=== PATIENT | female | born 1995 | race Caucasian/White ===

== ENCOUNTER 2017-05-03 07:50 | Inpatient (IN) | payer OTHER, MEDICAID ==
[2017-05-03] VITALS (11 sets, daily range): BP systolic 97–128; BP diastolic 57–75; PULSE 91–108; RESP 16–20; TEMP 97.7–99.5; O2SAT 97–100
[~2017-05-03] VITALS: Ht 162.6 cm; Wt 67.7 kg
[2017-05-03] MEDS ORDERED: ceFAZolin 2 GM PREMIX 50 ML IV ONE (08:00)
[2017-05-03] MEDS ORDERED: DIPHTH/TETANUS/ACEL PERTUSSIS (BOOSTER) 0.5 ML VIAL/PFS IM ONE (08:00)
[2017-05-03 08:21] LABS: AUTOMATED NEUTROPHIL # 24.9 TH/MM3 (1.8-7.7); BASOPHIL % 0.1 % (0.0-2.0); EOSINOPHIL # 0.1 TH/MM3 (0-0.4); EOSINOPHIL % 0.4 % (0.0-4.0); HEMATOCRIT 44.2 % (35.0-46.0); HEMO FLAGS DIFF FINAL; LYMPH % 6.3 % (9.0-44.0); LYMPHOCYTE # 1.8 TH/MM3 (1.0-4.8); MEAN CELL VOLUME 89.2 FL (80.0-100.0); MEAN CORPUSCULAR HEMOGLOBIN 29.1 PG (27.0-34.0); MEAN CORPUSCULAR HGB CONC 32.7 % (32.0-36.0); MONO % 6.1 % (0.0-8.0); NEUT % 87.1 % (16.0-70.0); PLATELET COUNT 339 TH/MM3 (150-450); RED BLOOD COUNT 4.96 MIL/MM3 (4.00-5.30); RED CELL DISTRIBUTION WIDTH 12.9 % (11.6-17.2); WHITE BLOOD COUNT 28.6 TH/MM3 (4.0-11.0)
[2017-05-03 08:23] LABS: I-STAT POTASSIUM 3.9 MMOL/L (3.5-4.9)
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
[2017-05-03] MEDS ORDERED: IOHEXOL 350 MG/ML 10 ML VIAL (for RAD DIAG) IVCONTRAST ONE (08:28)
[2017-05-03 08:33] LABS: PROTHROMBIN TIME - PATIENT 11.3 SEC (9.8-11.6)
[2017-05-03 08:35] LABS: APTT (PATIENT) 25.1 SEC (24.3-30.1)
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
[2017-05-03] MEDS ORDERED: LEVE500 PO (08:50)
[2017-05-03] MEDS ORDERED: KEPP750T PO (08:50)
[2017-05-03] MEDS ORDERED: MORPHINE SULFATE 4 MG/ML INJ IV PUSH ONE ×2 (09:00→11:15)
[2017-05-03] MEDS ORDERED: METOCLOPRAMIDE HCL 10 MG/2 ML VIAL IV PUSH ONE (09:00)
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
[2017-05-03] MEDS ORDERED: LIDOCAINE 2%/EPINEPHrine 1:100,000 20ML MDV NERV BLOCK ONE (09:30)
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
[2017-05-03] MEDS: LACTATED RINGER'S 1000 ML INJ 1,000 ML IV SCH ×2 (11:37→21:37)
[2017-05-03] MEDS ORDERED: MORPHINE SULFATE 4 MG/ML INJ IV PUSH PRN (11:45)
[2017-05-03] MEDS ORDERED: MISCELLANEOUS NURSING INFORMATION XX SCH (11:45)
[2017-05-03] MEDS ORDERED: CHLORHEXIDINE GLUCONATE 2 % 1 PACK (2 CLOTHS) TOP PRN (11:45)
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
[2017-05-03] MEDS ORDERED: METHOCARBAMOL 500 MG TAB PO ONE (13:15)
[2017-05-03] MEDS: KETOROLAC TROMETHAMINE 30 MG/ML (IVP) VIAL IVP SCH ×2 (13:41→20:19)
[2017-05-03] MEDS: ENOXAPARIN SODIUM 30 MG/0.3 ML SYRINGE SQ SCH (13:42)
[2017-05-03] MEDS: HYDROmorphone HCL PF 1 MG/ML VIAL IVP PRN ×2 (13:42→20:20)
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
[2017-05-03] MEDS ORDERED: AMPICILLIN-SULBACTAM INJ 1,500 MG VIAL IM SCH (14:00)
[2017-05-03] MEDS: levETIRAcetam 500 MG TAB PO SCH (15:15)
[2017-05-03] MEDS: AMPICILLIN/SULBAC 1500 MG/NS 100 ML IV SCH ×4 (18:24→23:59)
[2017-05-03] MEDS: DOCUSATE SODIUM 100 MG CAP PO SCH (20:18)
[2017-05-03] MEDS: levETIRAcetam 250 MG TAB PO SCH (20:18)
[2017-05-03] MEDS: BACITRACIN TOP OINT 15 GM TUBE TOPICAL SCH (20:24)
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
[2017-05-03] MEDS ORDERED: levETIRAcetam 500 MG TAB PO SCH (21:00)
[2017-05-04] VITALS (7 sets, daily range): BP systolic 101–113; BP diastolic 58–78; PULSE 81–106; RESP 18–19; TEMP 96–97.9; O2SAT 95–100
[2017-05-04] MEDS: HYDROmorphone HCL PF 1 MG/ML VIAL IVP PRN ×3 (00:08→14:00)
[2017-05-04] MEDS: SODIUM CHLORIDE 0.9% FLUSH 10 ML FLUSH IVF PRN (00:10)
[2017-05-04] MEDS: ENOXAPARIN SODIUM 30 MG/0.3 ML SYRINGE SQ SCH ×3 (01:00→23:58)
[2017-05-04] MEDS: KETOROLAC TROMETHAMINE 30 MG/ML (IVP) VIAL IVP SCH ×4 (02:14→21:22)
[2017-05-04] MEDS ORDERED: CHLORHEXIDINE GLUCONATE 2 % 1 PACK (2 CLOTHS) TOP SCH (04:00)
[2017-05-04] MEDS: AMPICILLIN/SULBAC 1500 MG/NS 100 ML IV SCH ×8 (06:19→23:58)
[2017-05-04 06:29] LABS: AUTOMATED NEUTROPHIL # 6.2 TH/MM3 (1.8-7.7); BASOPHIL % 0.3 % (0.0-2.0); EOSINOPHIL # 0.3 TH/MM3 (0-0.4); EOSINOPHIL % 3.8 % (0.0-4.0); HEMATOCRIT 35.9 % (35.0-46.0); HEMO FLAGS DIFF FINAL; LYMPH % 17.7 % (9.0-44.0); LYMPHOCYTE # 1.6 TH/MM3 (1.0-4.8); MEAN CELL VOLUME 89.3 FL (80.0-100.0); MEAN CORPUSCULAR HEMOGLOBIN 29.8 PG (27.0-34.0); MEAN CORPUSCULAR HGB CONC 33.4 % (32.0-36.0); MONO % 8.8 % (0.0-8.0); NEUT % 69.4 % (16.0-70.0); PLATELET COUNT 211 TH/MM3 (150-450); RED BLOOD COUNT 4.03 MIL/MM3 (4.00-5.30); RED CELL DISTRIBUTION WIDTH 12.6 % (11.6-17.2)
[2017-05-04 06:46] LABS: BICARBONATE 24.9 MEQ/L (21.0-32.0); POTASSIUM 3.4 MEQ/L (3.5-5.1)
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
[2017-05-04] MEDS: LACTATED RINGER'S 1000 ML INJ 1,000 ML IV SCH ×2 (07:37→17:37)
[2017-05-04] MEDS: BACITRACIN TOP OINT 15 GM TUBE TOPICAL SCH ×2 (09:00→23:59)
[2017-05-04] MEDS: levETIRAcetam 500 MG TAB PO SCH (09:46)
[2017-05-04] MEDS: FAMOTIDINE 20 MG TAB PO SCH ×2 (09:46→21:22)
[2017-05-04] MEDS: DOCUSATE SODIUM 100 MG CAP PO SCH ×2 (09:46→21:22)
[2017-05-04] MEDS: LACTULOSE SYRUP 20 GM/30 ML CUP PO SCH (09:55)
[2017-05-04] MEDS: ONDANSETRON HCL 4 MG/2 ML VIAL IV PUSH PRN (11:22)
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
--- NOTE | 2017-05-04 16:11 | HHI.PR ---
Subjective Remarks no new complaints re: right UE Objective Vital Signs Date Time Temp Pulse Resp B/P (MAP) Pulse Ox O2 Delivery O2 Flow Rate FiO2 05/04/17 15:22 96.0 89 19 112/67 (82) 98 05/04/17 11:44 97.9 103 19 109/64 (79) 96 05/04/17 07:50 97.2 89 19 113/78 (90) 100 05/04/17 04:04 97.0 89 18 101/70 (80) 96 05/03/17 23:00 97.7 91 18 117/67 (84) 98 05/03/17 20:50 18 05/03/17 19:19 98.4 95 18 115/65 (82) 97 I/O 05/03/17 05/03/17 05/03/17 05/04/17 05/04/17 05/04/17 07:00 15:00 23:00 07:00 15:00 23:00 Intake Total 50 ml 360 ml 1061 ml 350 ml Balance 50 ml 360 ml 1061 ml 350 ml Intake Oral 360 ml 0 ml 350 ml IV Total 50 ml 1061 ml # Voids 2 1 3 # Bowel Movements 0 0 Result Diagram: 05/04/17 0557 05/04/17 0557 Objective Remarks Examination right upper extremity reveals erythema and edema gone. She is moving all of her fingers and the nurse reinforces this fact Capillary refill less than 2 seconds all fingertips All musculotendinous units are intact All wounds on her right hand and wrist and forearm are clean, no drainage She is awake alert and oriented 3 She is pleasant She is comfortable in her bed with her boyfriend sitting in a chair next to her Assessment and Plan Problem List: (1) Cellulitis of right upper extremity ICD Codes: L03.113 - Cellulitis of right upper limb Plan: No evidence of any infection right upper extremity. I will sign off please recall as needed Maico Webb III, MD May 04, 2017 16:11
[2017-05-04] MEDS ORDERED: MAGNESIUM HYDROXIDE SUSP 30 ML CUP PO SCH (21:00)
[2017-05-04] MEDS: levETIRAcetam 250 MG TAB PO SCH (21:25)
[2017-05-05] VITALS (9 sets, daily range): BP systolic 101–140; BP diastolic 58–83; PULSE 83–95; RESP 16–24; TEMP 97.1–99.2; O2SAT 96–98
[2017-05-05] MEDS: KETOROLAC TROMETHAMINE 30 MG/ML (IVP) VIAL IVP SCH ×2 (02:17→08:59)
[2017-05-05] MEDS: LACTATED RINGER'S 1000 ML INJ 1,000 ML IV SCH ×3 (03:37→12:40)
[2017-05-05] MEDS: AMPICILLIN/SULBAC 1500 MG/NS 100 ML IV SCH ×4 (04:59→12:41)
[2017-05-05] MEDS ORDERED: MAGN400S PO (07:39)
[2017-05-05] MEDS ORDERED: DOCU1CAP39 PO (07:39)
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
[2017-05-05] MEDS: levETIRAcetam 500 MG TAB PO SCH (08:59)
[2017-05-05] MEDS: DOCUSATE SODIUM 100 MG CAP PO SCH (08:59)
[2017-05-05] MEDS: LACTULOSE SYRUP 20 GM/30 ML CUP PO SCH (08:59)
[2017-05-05] MEDS: FAMOTIDINE 20 MG TAB PO SCH (08:59)
[2017-05-05] MEDS: BACITRACIN TOP OINT 15 GM TUBE TOPICAL SCH (09:00)
[2017-05-05] MEDS: ONDANSETRON HCL 4 MG/2 ML VIAL IV PUSH PRN (10:35)
[2017-05-05] MEDS: SODIUM CHLORIDE 0.9% FLUSH 10 ML FLUSH IVF PRN ×2 (10:35→13:17)
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
--- NOTE | 2017-05-05 13:10 | RADRPT ---
EXAM DATE/TIME: 05/05/2017 12:34 [facility] COMPARISON: CT BRAIN W/O CONTRAST, May 03, 2017, 8:09. INDICATIONS : Altered mental status. RADIATION DOSE: 56.35 CTDIvol (mGy) MEDICAL HISTORY : Seizures. SURGICAL HISTORY : None. ENCOUNTER: Initial ACUITY: 1 day PAIN SCALE: 8/10 LOCATION: Cranial TECHNIQUE: Multiple contiguous axial images were obtained of the head. Using automated exposure control and adj ustment of the mA and/or kV according to patient size, radiation dose was kept as low as reasonably a chievable to obtain optimal diagnostic quality images. DICOM format image data is available electro nically for review and comparison. FINDINGS: There is focal edema within the left mid-parietal lobe which has developed since the previous examina tion and measures 3.6 x 1.6 cm in size. There is no midline shift. No acute extra-axial bleed is noted. The ventricles are normal bilaterally. There is a radiopaque foreign body within the left frontal scalp. Small fluid l evels are noted within the maxillary sinuses. CONCLUSION: 1. Interval development of an area of edema within the left parietal lobe measuring 3.6 x 1.6 cm. No definite underlying acute hemorrhage is noted. 2. No midline shift or acute extra-axial bleed. 3. Radiopaque foreign body within the left frontal scalp. 4. Small fluid levels within the maxillary sinuses bilaterally. Clayton Sharpe MD on May 05, 2017 at 13:00 Board Certified Radiologist. This report was verified electronically.
[2017-05-05] MEDS: ENOXAPARIN SODIUM 30 MG/0.3 ML SYRINGE SQ SCH (13:17)
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
[2017-05-05] MEDS ORDERED: GADODIAMIDE PF 287 MG/ML 20 ML VIAL (for RAD MRI) IVCONTRAST ONE (16:38)
[2017-05-05] MEDS: HYDROmorphone HCL PF 1 MG/ML VIAL IVP PRN (17:15)
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
[2017-05-05] MEDS ORDERED: IOHEXOL 350 MG/ML 10 ML VIAL (for RAD DIAG) IVCONTRAST ONE (17:45)
--- NOTE | 2017-05-05 17:55 | RADRPT ---
EXAM DATE/TIME: 05/05/2017 17:25 [facility] COMPARISON: MRI BRAIN W/O CONTRAST, May 05, 2017, 16:25. INDICATIONS : Altered mental status. CONTRAST: 14 cc Omniscan (gadodiamide) IV MEDICAL HISTORY : Seizures. SURGICAL HISTORY : None. ENCOUNTER: Initial ACUITY: 1 day PAIN SCORE: 0/10 LOCATION: cranial TECHNIQUE: Multiplanar, multisequence MRI of the brain was performed following the administration of paramagneti c contrast. FINDINGS: Postcontrast T1 axial and coronal images were performed and compared with noncontrast MRI one hour pr evious. There is symmetric voss-white matter differentiation in the left and right hemisphere. No abnormal a reas of contrast enhancement or blood-brain barrier breakdown seen in the supra-or infratentorial bra in. In particular, no abnormal enhancement seen in the area of the acute left high parietal infarcti on. CONCLUSION: No abnormal areas of enhancement seen. Adonay Tatum MD on May 05, 2017 at 17:49 Board Certified Radiologist. This report was verified electronically.
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
[2017-05-05] MEDS: levETIRAcetam 250 MG TAB PO SCH (20:10)
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
== END 2017-05-05 20:53 | disposition short-term general hospital (02) | DRG 964 ==
LOC: NEPE 07:50 → NEDA 10:12 → N06B 12:39 → N03A 05-05 17:56
PROVIDERS: ADMIT Surgery Trauma Surgery; ATTEND Surgery Trauma Surgery
PROC: 0HQ1XZZ Repair Face Skin, External Approach (ICD-10-PCS; principal; 2017-05-03)
DX: S32.10XA Unspecified fracture of sacrum, initial encounter for closed fracture (principal); S06.1X0A Traumatic cerebral edema without loss of consciousness, initial encounter; R47.01 Aphasia; S32.591A Other specified fracture of right pubis, initial encounter for closed fracture; S32.018A Other fracture of first lumbar vertebra, initial encounter for closed fracture; S32.028A Other fracture of second lumbar vertebra, initial encounter for closed fracture; S32.038A Other fracture of third lumbar vertebra, initial encounter for closed fracture; S32.048A Other fracture of fourth lumbar vertebra, initial encounter for closed fracture; L03.113 Cellulitis of right upper limb; S01.112A Laceration without foreign body of left eyelid and periocular area, initial encounter; S42.021A Displaced fracture of shaft of right clavicle, initial encounter for closed fracture; V43.62XA Car passenger injured in collision with other type car in traffic accident, initial encounter; Y92.414 Local residential or business street as the place of occurrence of the external cause; F43.25 Adjustment disorder with mixed disturbance of emotions and conduct; G40.909 Epilepsy, unspecified, not intractable, without status epilepticus; F41.9 Anxiety disorder, unspecified
CPT/HCPCS: 12013; 70450; 70486; 70496; 70498; 70551; 70552; 71010; 71260; 72125; 72128; 72131; 72170; 73020; 73060; 73090; 73100; 73120; 73551; 73560; 74177; 80048; 82435; 82565; 82947; 84132; 84295; 84520; 85025; 85610; 85730; 86850; 86900; 86901; 90471; 90715; 94150; 96365; 96375; 99291; A9579; G0390; J0295; J0690; J1170; J1650; J1885; J2270; J2405; J2765; J7120; L3908; Q9967

== ENCOUNTER 2017-05-10 20:54 | Inpatient (IN) | payer SELFPAY ==
[~2017-05-10 20:54] MED LIST: DOCU1CAP39 PO; KEPP750T PO; LEVE500 PO; MAGN400S PO
[2017-05-11 15:45] VITALS: BP 140/63; PULSE 83; RESP 17; TEMP 98.6; O2SAT 97
[2017-05-11] MEDS ORDERED: CHLORHEXIDINE GLUCONATE 2 % 1 PACK (2 CLOTHS) TOP PRN ×2 (16:15)
[2017-05-11] MEDS ORDERED: SENNOSIDES 8.6 MG TAB PO PRN ×2 (16:15)
[2017-05-11] MEDS ORDERED: oxyCODONE/ACETAMINOPHEN 5 MG/325 MG TAB PO PRN ×2 (16:15)
[2017-05-11] MEDS ORDERED: MAGNESIUM HYDROXIDE SUSP 30 ML CUP PO PRN ×2 (16:15)
[2017-05-11] MEDS ORDERED: LACTULOSE SYRUP 20 GM/30 ML CUP PO PRN ×2 (16:15)
[2017-05-11] MEDS ORDERED: MISCELLANEOUS NURSING INFORMATION XX SCH ×2 (16:15)
[2017-05-11] MEDS ORDERED: SODIUM CHLORIDE 0.9% FLUSH 10 ML FLUSH IV FLUSH PRN ×2 (16:15)
[2017-05-11] MEDS ORDERED: BISACODYL 10 MG SUPP RECTAL PRN ×2 (16:15)
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
[2017-05-11] MEDS: oxyCODONE/ACETAMINOPHEN 5 MG/325 MG TAB PO PRN ×2 (17:28)
[2017-05-11 18:00] VITALS: PULSE 89
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
[2017-05-11] MEDS ORDERED: ONDANSETRON HCL 4 MG/2 ML VIAL IV PUSH PRN ×2 (19:30)
[2017-05-11 20:00] VITALS: BP 103/65; PULSE 78; RESP 12; TEMP 97.8; O2SAT 98
[2017-05-11] MEDS: SODIUM CHLOR 0.9% 1000 ML INJ 1,000 ML IV SCH ×2 (20:04)
[2017-05-11] MEDS: levETIRAcetam 500 MG TAB PO SCH ×2 (20:41)
[2017-05-11] MEDS: DOCUSATE SODIUM 50 MG/SENNA 8.6 MG TAB PO SCH ×2 (20:41)
[2017-05-11] MEDS: ATORVASTATIN 10 MG TAB PO SCH ×2 (20:42)
[2017-05-11] MEDS: SODIUM CHLORIDE 0.9% FLUSH 10 ML FLUSH IV FLUSH SCH ×2 (21:00)
[2017-05-11 22:00] VITALS: PULSE 72
[2017-05-12] VITALS (7 sets, daily range): BP systolic 92–116; BP diastolic 55–67; PULSE 62–98; RESP 12–20; TEMP 97.8–98.4; O2SAT 96–98
[2017-05-12] MEDS: CHLORHEXIDINE GLUCONATE 2 % 1 PACK (2 CLOTHS) TOP SCH ×2 (04:00)
[2017-05-12 05:58] LABS: AUTOMATED NEUTROPHIL # 7.6 TH/MM3 (1.8-7.7); BASOPHIL # 0.1 TH/MM3 (0-0.2); BASOPHIL % 0.5 % (0.0-2.0); EOSINOPHIL # 0.6 TH/MM3 (0-0.4); EOSINOPHIL % 5.2 % (0.0-4.0); HEMOGLOBIN 12.3 GM/DL (11.6-15.3); LYMPH % 18.6 % (9.0-44.0); LYMPHOCYTE # 2.1 TH/MM3 (1.0-4.8); MEAN CORPUSCULAR HEMOGLOBIN 30.3 PG (27.0-34.0); MEAN CORPUSCULAR HGB CONC 34.1 % (32.0-36.0); MEAN PLATELET VOLUME 9.2 FL (7.0-11.0); MONO % 6.8 % (0.0-8.0); MONOCYTE # 0.7 TH/MM3 (0-0.9); NEUT % 68.9 % (16.0-70.0); PLATELET COUNT 274 TH/MM3 (150-450); RED BLOOD COUNT 4.05 MIL/MM3 (4.00-5.30); RED CELL DISTRIBUTION WIDTH 12.7 % (11.6-17.2)
[2017-05-12 06:08] LABS: INTERNATIONAL NORMALIZED RATIO 2.8 RATIO; PROTHROMBIN TIME - PATIENT 32.2 SEC (9.8-11.6)
[2017-05-12 06:17] LABS: BICARBONATE 25.7 MEQ/L (21.0-32.0); CALCIUM 9.1 MG/DL (8.5-10.1); CREATININE 0.62 MG/DL (0.50-1.00)
[2017-05-12] MEDS: oxyCODONE/ACETAMINOPHEN 5 MG/325 MG TAB PO PRN ×6 (07:41→17:42)
[2017-05-12] MEDS: DOCUSATE SODIUM 50 MG/SENNA 8.6 MG TAB PO SCH ×4 (09:00→21:24)
[2017-05-12] MEDS: SODIUM CHLORIDE 0.9% FLUSH 10 ML FLUSH IV FLUSH SCH ×4 (09:00→21:00)
[2017-05-12] MEDS: FOLIC ACID 1 MG TAB PO SCH ×2 (09:01)
[2017-05-12] MEDS: levETIRAcetam 500 MG TAB PO SCH ×4 (09:01→21:23)
--- NOTE | 2017-05-12 09:49 | PD.CONS ---
[facility] Service Neurosurgery Consult Requested By Dr Nickerson Reason for Consult Trauma alert Primary Care Physician Unknown History of Present Illness This is a 22 y.o female, transferred last weekend to [facility] with CVA s/p b/l ICA dissection .She has been anticoagulated initially on heparin then on coumadin-she has been discharged with OP follow up recommendation by subspecialties,and rehab. Review of Systems Constitutional: DENIES: Diaphoretic episodes, Fatigue, Fever, Weight gain, Weight loss, Chills, Dizziness, Change in appetite, Night Sweats Endocrine: DENIES: Abnorml menstrual pattern, Heat/cold intolerance, Polydipsia , Polyuria, Polyphagia Eyes: DENIES: Blurred vision, Diplopia, Eye inflammation, Eye pain, Vision loss , Photosensitivity, Double Vision Ears, nose, mouth, throat: DENIES: Tinnitus, Hearing loss, Vertigo, Nasal discharge, Oral lesions, Throat pain, Hoarseness, Ear Pain, Running Nose, Epistaxis, Sinus Pain, Toothache, Odynophagia Respiratory: DENIES: Apneas, Cough, Snoring, Wheezing, Hemoptysis, Sputum production, Shortness of breath Cardiovascular: DENIES: Chest pain, Palpitations, Syncope, Dyspnea on Exertion , PND, Lower Extremity Edema, Orthopnea, Claudication Gastrointestinal: DENIES: Abdominal pain, Black stools, Bloody stools, Constipation, Diarrhea, Nausea, Vomiting, Difficulty Swallowing, Anorexia Genitourinary: DENIES: Abnormal vaginal bleeding, Dysmenorrhea, Dyspareunia, Sexual dysfunction, Urinary frequency, Urinary incontinence, Urgency, Hematuria , Dysuria, Nocturia, Vaginal discharge Musculoskeletal: DENIES: Joint pain, Muscle aches, Stiffness, Joint Swelling, Back pain, Neck pain Integumentary: DENIES: Abnormal pigmentation, Pruritus, Rash, Nail changes, Breast masses, Breast skin changes, Nipple discharge Hematologic/lymphatic: DENIES: Bruising, Lymphadenopathy Immunologic/allergic: DENIES: Eczema, Urticaria Neurologic: DENIES: Abnormal gait, Headache, Localized weakness, Paresthesias, Seizures, Speech Problems, Tremor, Poor Balance Past Family Social History Allergies: Coded Allergies: No Known Allergies (Unverified , 05/03/17) Past Medical History Seizures Past Surgical History Active Ordered Medications Current Medications Sodium Chloride (NS Flush) 2 ml UNSCH PRN IV FLUSH FLUSH AFTER USING IV ACCESS ; Start 05/11/17 at 16:15 Sodium Chloride (NS Flush) 2 ml BID IV FLUSH Last administered on 05/12/17 09: 00; Start 05/11/17 at 21:00 Oxycodone/ Acetaminophen (Percocet 5-325 Mg) 1 tab Q4H PRN PO PAIN SCALE 1 TO 5; Start 05/11/17 at 16:15 Miscellaneous Information 1 [id number] XX Last administered on 05/11/17 16:15; Start 05/11/17 at 16:15 Chlorhexidine Gluconate (Chlorhexidine 2% Cloth) 3 pack Taper DAILY@04 TOP ; Start 05/12/17 at 04:00; Stop 05/08/18 at 03:59 Chlorhexidine Gluconate (Chlorhexidine 2% Cloth) 3 pack UNSCH PRN TOP HYGIENIC CARE; Start 05/11/17 at 16:15 Senna/Docusate Sodium (Zoë-Colace) 1 tab BID PO Last administered on 20:41; Start 05/11/17 at 21:00 Magnesium Hydroxide (Milk Of Magnesia Liq) 30 ml Q12H PRN PO Mild constipation ; Start 05/11/17 at 16:15 Sennosides (Senokot) 17.2 mg Q12H PRN PO Moderate constipation; Start 05/11/17 at 16:15 Bisacodyl (Dulcolax Supp) 10 mg DAILY PRN RECTAL SEVERE CONSITIPATION; Start 05/11/17 at 16:15 Lactulose (Lactulose Liq) 30 ml DAILY PRN PO SEVERE CONSITIPATION; Start at 16:15 Atorvastatin Calcium (Lipitor) 10 mg HS PO Last administered on 05/11/17 20:42 ; Start 05/11/17 at 21:00 Folic Acid (Folate) 1 mg DAILY PO Last administered on 05/12/17 09:01; Start 05/12/17 at 09:00 Levetriacetam (Keppra) 1,000 mg Q12HR PO Last administered on 05/12/17 09:01; Start 05/11/17 at 21:00 Oxycodone/ Acetaminophen (Percocet 5-325 Mg) 2 tab Q4H PRN PO PAIN SCALE 7 TO 10 Last administered on 05/12/17 07:41; Start 05/11/17 at 16:15 Ondansetron HCl (Zofran Inj) 4 mg Q6H PRN IV PUSH N/V Last administered on 05/11 19:56; Start 05/11/17 at 19:30 Sodium Chloride 1,000 ml @ 50 mls/hr Q20H IV Last administered on 05/11/17 20 :04; Start 05/11/17 at 20:00 Family History Her family history has been reviewed and is noncontributory to this admission Social History smoking + Denies illicit drug use Physical Exam Vital Signs Vital Signs Date Time Temp Pulse Resp B/P (MAP) Pulse Ox O2 Delivery O2 Flow Rate FiO2 05/12/17 06:00 66 05/12/17 04:00 98.4 64 12 116/66 (83) 98 05/12/17 04:00 64 05/12/17 02:00 68 05/12/17 00:00 98.0 62 18 99/67 (78) 98 05/12/17 00:00 62 05/11/17 22:00 72 05/11/17 20:00 78 05/11/17 20:00 97.8 78 12 103/65 (78) 98 05/11/17 19:00 98 Room Air 05/11/17 18:00 89 05/11/17 15:45 97 Room Air 05/11/17 15:45 98.6 83 17 140/63 (88) 97 05/11/17 15:45 83 Physical Exam The patient is alert, awake and oriented to time, place and person. Speech is fluent. Higher cognitive functions are normal. Cranial nerve examination demonstrates the pupils to be equal, round, and reactive to light. Extra-ocular movements are intact. Facial motor and sensory function are normal and symmetrical. Gross hearing is intact, bilaterally. The uvula is midline and elevates symmetrically with the soft palate. Sternocleidomastoid and trapezius muscles have normal and symmetrical strength. Other cranial nerves are intact. Neck is soft and supple. Cervical spine has a full range of motion in anterior flexion, extension, lateral bending, and rotation without pain. There is no tenderness to palpation to the spinous processes or paraspinal muscles. Muscle testing reveals normal bulk and tone overall without rigidity, spasticity , fasciculations, or atrophy. Muscle strength is 5/5 in all muscle groups of both upper extremities including deltoid, biceps, triceps, brachioradialis, wrist extension and wellness program manager. In the lower extremities, strength is 5/5 in both iliopsoas, quadriceps, hamstrings, plantar flexion, dorsiflexion, and extensor hallicus longus. Sensory examination is intact to light touch and sharp/dull discrimination in both the upper and lower extremities, symmetrically. Deep tendon reflexes are 2+ and symmetrical in the biceps, triceps, and brachioradialis, bilaterally, in the upper extremities. In the lower extremities , the patellar and Achilles are 2+, bilaterally. There is a bilateral plantar flexion response. Hoffmanns sign is negative. There is no clonus or other abnormal reflexes noted. Cerebellar examination is intact to [id number] test, rapid rhythmic alternating motion. There is no dysmetria, dysdiadochokinesia, truncal ataxia, or tremor. Laboratory Laboratory Tests Test 05/12/17 04:48 White Blood Count 11.0 Red Blood Count 4.05 Hemoglobin 12.3 Hematocrit 36.0 Mean Corpuscular Volume 89.0 Mean Corpuscular Hemoglobin 30.3 Mean Corpuscular Hemoglobin Concent 34.1 Red Cell Distribution Width 12.7 Platelet Count 274 Mean Platelet Volume 9.2 Neutrophils (%) (Auto) 68.9 Lymphocytes (%) (Auto) 18.6 Monocytes (%) (Auto) 6.8 Eosinophils (%) (Auto) 5.2 Basophils (%) (Auto) 0.5 Neutrophils # (Auto) 7.6 Lymphocytes # (Auto) 2.1 Monocytes # (Auto) 0.7 Eosinophils # (Auto) 0.6 Basophils # (Auto) 0.1 CBC Comment DIFF FINAL Differential Comment Prothrombin Time 32.2 Prothromb Time International Ratio 2.8 Blood Urea Nitrogen 14 Creatinine 0.62 Random Glucose 78 Calcium Level 9.1 Sodium Level 137 Potassium Level 4.0 Chloride Level 104 Carbon Dioxide Level 25.7 Anion Gap 7 Estimat Glomerular Filtration Rate 123 Result Diagram: 05/12/17 0448 05/12/17 044 Assessment and Plan Assessment and Plan Caprini VTE Risk Assessment Caprini VTE Risk Assessment Caprini VTE Risk Assessment: No/Low Risk (score <= 1) Caprini Risk Assessment Model Point Value = 1 Point Value = 2 Point Value = 3 Point Value = 5 Age 41-60 Minor surgery BMI > 25 kg/m2 Swollen legs Varicose veins or History of unexplained or recurrent spontaneous Oral contraceptives or hormone replacement Sepsis (< 1 month) Serious lung disease, including pneumonia (< 1 month) Abnormal pulmonary function Acute myocardial infarction Congestive heart failure (< 1 month) History of inflammatory bowel disease Medical patient at bed rest Age 61-74 Arthroscopic surgery Major open surgery (> 45 min) Laparoscopic surgery (> 45 min) Malignancy Confined to bed (> 72 hours) Immobilizing plaster cast Central venous access Age >= 75 History of VTE Family history of VTE Factor V Leiden Prothrombin [id number] Lupus anticoagulant Anticardiolipin antibodies Elevated serum homocysteine Heparin-induced thrombocytopenia Other congenital or acquired thrombophilia Stroke (< 1 month) Elective arthroplasty Hip, pelvis, or leg fracture Acute spinal cord injury (< 1 month) Prophylaxis Regimen Total Risk Factor Score Risk Level Prophylaxis Regimen 0-1 Low Early ambulation 2 Moderate Order ONE of the following: *Sequential Compression Device (SCD) *Heparin 5000 units SQ BID 3-4 Higher Order ONE of the following medications: *Heparin 5000 units SQ TID *Enoxaparin/Lovenox 40 mg SQ daily (WT < 150 kg, CrCl > 30 mL/min) *Enoxaparin/Lovenox 30 mg SQ daily (WT < 150 kg, CrCl > 10-29 mL/min) *Enoxaparin/Lovenox 30 mg SQ BID (WT < 150 kg, CrCl > 30 mL/min) AND/OR *Sequential Compression Device (SCD) 5 or more Highest Order ONE of the following medications: *Heparin 5000 units SQ TID (Preferred with Epidurals) *Enoxaparin/Lovenox 40 mg SQ daily (WT < 150 kg, CrCl > 30 mL/min) *Enoxaparin/Lovenox 30 mg SQ daily (WT < 150 kg, CrCl > 10-29 mL/min) *Enoxaparin/Lovenox 30 mg SQ BID (WT < 150 kg, CrCl > 30 mL/min) AND *Sequential Compression Device (SCD) Attending Statement s/p multitrauma pelvic fx clavicle fx sacral fx CVA by b/i ICA injury. No need for ant neurosurgical intervention Continue neuro checks. Pulmonary.. Continue aggressive pulmonary toilette, nasotracheal suction, and breathing treatments with nebulizers. Nutrition. NPO Renal. monitor closely urine output, BUN and creatinine Endocrine. Monitor serial Acu checks and SSI as needed in detail ID monitor for signs of infection Protonix for stress ulcer prophylaxis I will defer further care to her neurosureon Dr Alberto Wilson,Hernan Cook MD May 12, 2017 09:49
[2017-05-12] MEDS ORDERED: WARFARIN SOD 2 MG TAB PO ONE ×2 (10:00)
--- NOTE | 2017-05-12 10:31 | HHI.CCPN ---
Subjective 24 Hour Review/Hospital Course 05/12 Transfer from tertiary care center-multitrauma including sacral fracture multiple transverse processes of lumbar spine, pelvic fracture clavicle fracture and internal carotid dissection bilateral with CVA. She is on Coumadin - Clinically stable, neurologically intact Objective Vital Signs Date Time Temp Pulse Resp B/P (MAP) Pulse Ox O2 Delivery O2 Flow Rate FiO2 05/12/17 06:00 66 05/12/17 04:00 98.4 12 116/66 (83) 98 05/11/17 19:00 Room Air Intake and Output 05/12/17 05/12/17 05/13/17 08:00 16:00 00:00 Intake Total 50 ml Balance 50 ml Result Diagram: 05/12/17 0448 05/12/17 0448 Exam BATTERY REPAIRER GCS 15 Hemodynamic/Cardiac Stable Pulmonary/Respiratory Stable Abdomen/GI Nutrition Soft benign Hematologic inr 2.8 Vascular Central Line Catheter Vascular Central Line Catheter: No Assessment and Plan Plan She will need assessment by physical therapy for recommendations, INR will need to be stabilized, we'll await level suggestion by neurology, we'll give Coumadin 2 mg Patient is adamant to be discharged-had long discussion explaining the safety of discharge specially status post pelvic fracture and anticoagulated state We'll transfer to the regular floor Louise Nickerson MD May 12, 2017 10:30
--- NOTE | 2017-05-12 10:31 | HHI.CCPN ---
Subjective 24 Hour Review/Hospital Course 05/12 Transfer from tertiary care center-multitrauma including sacral fracture multiple transverse processes of lumbar spine, pelvic fracture clavicle fracture and internal carotid dissection bilateral with CVA. She is on Coumadin - Clinically stable, neurologically intact Objective Vital Signs Date Time Temp Pulse Resp B/P (MAP) Pulse Ox O2 Delivery O2 Flow Rate FiO2 05/12/17 06:00 66 05/12/17 04:00 98.4 12 116/66 (83) 98 05/11/17 19:00 Room Air Intake and Output 05/12/17 05/12/17 05/13/17 08:00 16:00 00:00 Intake Total 50 ml Balance 50 ml Result Diagram: 05/12/17 0448 05/12/17 0448 Exam OVERNIGHT CAREGIVER GCS 15 Hemodynamic/Cardiac Stable Pulmonary/Respiratory Stable Abdomen/GI Nutrition Soft benign Hematologic inr 2.8 Vascular Central Line Catheter Vascular Central Line Catheter: No Assessment and Plan Plan She will need assessment by physical therapy for recommendations, INR will need to be stabilized, we'll await level suggestion by neurology, we'll give Coumadin 2 mg Patient is adamant to be discharged-had long discussion explaining the safety of discharge specially status post pelvic fracture and anticoagulated state We'll transfer to the regular floor Louise Nickerson MD May 12, 2017 10:30
--- NOTE | 2017-05-12 10:31 | HHI.CCPN ---
Subjective 24 Hour Review/Hospital Course 05/12 Transfer from tertiary care center-multitrauma including sacral fracture multiple transverse processes of lumbar spine, pelvic fracture clavicle fracture and internal carotid dissection bilateral with CVA. She is on Coumadin - Clinically stable, neurologically intact Objective Vital Signs Date Time Temp Pulse Resp B/P (MAP) Pulse Ox O2 Delivery O2 Flow Rate FiO2 05/12/17 06:00 66 05/12/17 04:00 98.4 12 116/66 (83) 98 05/11/17 19:00 Room Air Intake and Output 05/12/17 05/12/17 05/13/17 08:00 16:00 00:00 Intake Total 50 ml Balance 50 ml Result Diagram: 05/12/17 0448 05/12/17 0448 Exam AEROSPACE STRESS ENGINEER GCS 15 Hemodynamic/Cardiac Stable Pulmonary/Respiratory Stable Abdomen/GI Nutrition Soft benign Hematologic inr 2.8 Vascular Central Line Catheter Vascular Central Line Catheter: No Assessment and Plan Plan She will need assessment by physical therapy for recommendations, INR will need to be stabilized, we'll await level suggestion by neurology, we'll give Coumadin 2 mg Patient is adamant to be discharged-had long discussion explaining the safety of discharge specially status post pelvic fracture and anticoagulated state We'll transfer to the regular floor Louise Nickerson MD May 12, 2017 10:30
--- NOTE | 2017-05-12 10:50 | PD.ORT.PN ---
Subjective Subjective Remarks no new c/o from right shoulder or pelvis + weakness of R arm less pain from these areas no new N/T upper or lower extremities using sling occasionallly at [facility] previously Objective Vitals Vital Signs Date Time Temp Pulse Resp B/P (MAP) Pulse Ox O2 Delivery O2 Flow Rate FiO2 05/12/17 06:00 66 05/12/17 04:00 98.4 64 12 116/66 (83) 98 05/12/17 04:00 64 05/12/17 02:00 68 05/12/17 00:00 98.0 62 18 99/67 (78) 98 05/12/17 00:00 62 05/11/17 22:00 72 05/11/17 20:00 78 05/11/17 20:00 97.8 78 12 103/65 (78) 98 05/11/17 19:00 98 Room Air 05/11/17 18:00 89 05/11/17 15:45 97 Room Air 05/11/17 15:45 98.6 83 17 140/63 (88) 97 05/11/17 15:45 83 I/O 05/11/17 05/11/17 05/11/17 05/12/17 05/12/17 05/12/17 07:00 15:00 23:00 07:00 15:00 23:00 Intake Total 240 ml 50 ml Balance 240 ml 50 ml Intake Oral 240 ml 50 ml # Voids 1 0 Result Diagram: 05/12/178 05/12/17 0448 Other Results Laboratory Tests Test 05/12/17 04:48 Prothromb Time International Ratio 2.8 RATIO Prothrombin Time 32.2 SEC (9.8-11.6) Imaging clavicle and pelvis x-rays reviewed and reports reviewed mod displacement R clavicle (stable) R SIPR fx, ND, stable Objective Remarks R shoulder weakness + r clvicle mild swelling, mild tender, skin intact over clavicle mult healing abrasions R arm, no infection signs moves fingers R hand pelvis with mild swelling and mild echymosis, no wounds no pain with PROM R hip min weakness R hip DNVI Assessment & Plan Assessment and Plan + traumatic stroke - just transfered back from [facility] (R UE weakness) R clavicle mod disp fx -> non-op treament. discussed future ORIF if non-union. sling for comfort, start gentle ROM, avoid significant WB through the RUE until pain resolves R pelvis SIPR fx ND. Non-op. WBAT R LE F/u With DR. Meraz in 2 weeks (He did original consult) Pablo Pike MD May 12, 2017 10:50
--- NOTE | 2017-05-12 10:50 | PD.ORT.PN ---
Subjective Subjective Remarks no new c/o from right shoulder or pelvis + weakness of R arm less pain from these areas no new N/T upper or lower extremities using sling occasionallly at [facility] previously Objective Vitals Vital Signs Date Time Temp Pulse Resp B/P (MAP) Pulse Ox O2 Delivery O2 Flow Rate FiO2 05/12/17 06:00 66 05/12/17 04:00 98.4 64 12 116/66 (83) 98 05/12/17 04:00 64 05/12/17 02:00 68 05/12/17 00:00 98.0 62 18 99/67 (78) 98 05/12/17 00:00 62 05/11/17 22:00 72 05/11/17 20:00 78 05/11/17 20:00 97.8 78 12 103/65 (78) 98 05/11/17 19:00 98 Room Air 05/11/17 18:00 89 05/11/17 15:45 97 Room Air 05/11/17 15:45 98.6 83 17 140/63 (88) 97 05/11/17 15:45 83 I/O 05/11/17 05/11/17 05/11/17 05/12/17 05/12/17 05/12/17 07:00 15:00 23:00 07:00 15:00 23:00 Intake Total 240 ml 50 ml Balance 240 ml 50 ml Intake Oral 240 ml 50 ml # Voids 1 0 Result Diagram: 05/12/178 05/12/17 0448 Other Results Laboratory Tests Test 05/12/17 04:48 Prothromb Time International Ratio 2.8 RATIO Prothrombin Time 32.2 SEC (9.8-11.6) Imaging clavicle and pelvis x-rays reviewed and reports reviewed mod displacement R clavicle (stable) R SIPR fx, ND, stable Objective Remarks R shoulder weakness + r clvicle mild swelling, mild tender, skin intact over clavicle mult healing abrasions R arm, no infection signs moves fingers R hand pelvis with mild swelling and mild echymosis, no wounds no pain with PROM R hip min weakness R hip DNVI Assessment & Plan Assessment and Plan + traumatic stroke - just transfered back from [facility] (R UE weakness) R clavicle mod disp fx -> non-op treament. discussed future ORIF if non-union. sling for comfort, start gentle ROM, avoid significant WB through the RUE until pain resolves R pelvis SIPR fx ND. Non-op. WBAT R LE F/u With DR. Meraz in 2 weeks (He did original consult) Pablo Pike MD May 12, 2017 10:50
--- NOTE | 2017-05-12 10:50 | PD.ORT.PN ---
Subjective Subjective Remarks no new c/o from right shoulder or pelvis + weakness of R arm less pain from these areas no new N/T upper or lower extremities using sling occasionallly at [facility] previously Objective Vitals Vital Signs Date Time Temp Pulse Resp B/P (MAP) Pulse Ox O2 Delivery O2 Flow Rate FiO2 05/12/17 06:00 66 05/12/17 04:00 98.4 64 12 116/66 (83) 98 05/12/17 04:00 64 05/12/17 02:00 68 05/12/17 00:00 98.0 62 18 99/67 (78) 98 05/12/17 00:00 62 05/11/17 22:00 72 05/11/17 20:00 78 05/11/17 20:00 97.8 78 12 103/65 (78) 98 05/11/17 19:00 98 Room Air 05/11/17 18:00 89 05/11/17 15:45 97 Room Air 05/11/17 15:45 98.6 83 17 140/63 (88) 97 05/11/17 15:45 83 I/O 05/11/17 05/11/17 05/11/17 05/12/17 05/12/17 05/12/17 07:00 15:00 23:00 07:00 15:00 23:00 Intake Total 240 ml 50 ml Balance 240 ml 50 ml Intake Oral 240 ml 50 ml # Voids 1 0 Result Diagram: 05/12/178 05/12/17 0448 Other Results Laboratory Tests Test 05/12/17 04:48 Prothromb Time International Ratio 2.8 RATIO Prothrombin Time 32.2 SEC (9.8-11.6) Imaging clavicle and pelvis x-rays reviewed and reports reviewed mod displacement R clavicle (stable) R SIPR fx, ND, stable Objective Remarks R shoulder weakness + r clvicle mild swelling, mild tender, skin intact over clavicle mult healing abrasions R arm, no infection signs moves fingers R hand pelvis with mild swelling and mild echymosis, no wounds no pain with PROM R hip min weakness R hip DNVI Assessment & Plan Assessment and Plan + traumatic stroke - just transfered back from [facility] (R UE weakness) R clavicle mod disp fx -> non-op treament. discussed future ORIF if non-union. sling for comfort, start gentle ROM, avoid significant WB through the RUE until pain resolves R pelvis SIPR fx ND. Non-op. WBAT R LE F/u With DR. Meraz in 2 weeks (He did original consult) Pablo Pike MD May 12, 2017 10:50
[2017-05-12] MEDS: SODIUM CHLOR 0.9% 1000 ML INJ 1,000 ML IV SCH ×2 (16:34)
[2017-05-12] MEDS: ATORVASTATIN 10 MG TAB PO SCH ×2 (21:24)
--- NOTE | 2017-05-12 23:34 | MB ---
cc: IRVIN SHEPPARD MD DATE OF CONSULTATION 05/12/17 REASON FOR CONSULTATION CVA after trauma. HISTORY OF PRESENT ILLNESS Ms. Lake is a 22-year-old female transferred back from [facility] with a stroke status post bilateral ICA dissection. The patient was initially anticoagulated with heparin then on Coumadin. She is referred back from [place] for further followup. REVIEW OF SYSTEMS A 12-point review of systems is negative except for what is stated in the HPI. ALLERGIES No known allergies. PAST MEDICAL HISTORY. Seizure disorder. SOCIAL HISTORY Denies illicit drug use. No alcohol, but positive for smoking. FAMILY HISTORY Noncontributory. PHYSICAL EXAMINATION GENERAL: The patient is awake, alert, oriented to time, person and place. Pleasant, anxious. NEURO: Cranial nerve examination, pupils equal, round, bilateral reacting to light. Intact external ocular motility. No facial asymmetry. Intact facial sensation. Normal hearing. NECK: No signs of meningeal irritation. EXTREMITIES: Right upper extremity grade 5- shoulder abduction, hand wrist extension 4-/5. Elbow extension is 4/5. Finger flexion is 4-/5. Right lower extremity increased tone with 5-/5. Right hip flexion at 4+/5. Right foot extension, otherwise 5/5 bilateral, the rest of the right lower extremity and upper extremity and the entire left upper and lower extremity intact sensory examination. Reflexes 2+ bilateral and symmetrical. Plantars are bilateral, downgoing. Intact cerebellar function, [id number], however, slower on the right upper extremity. DIAGNOSTIC STUDIES White blood cells 11, hemoglobin 12.3, platelet 274, BUN 14, creatinine 0.62, calcium 9.1, sodium 137. DIAGNOSTIC IMAGING - MRI done on 05/05/2017 revealed no abnormal area of enhancement. - CTA neck on 05/05/2017 revealed bilateral ICA dissection below the base of the skull with extension into the petrous portion. DIAGNOSTIC IMPRESSION Status post trauma pelvic clavicle and sacral fracture and stroke status post bilateral internal carotid artery injury revealed by CTA. PLAN 1. Patient is stable from neurologic standpoint. No acute neurologic deficit, there is no need for further neurologic intervention or workup. 2. Follow-up with outpatient. 3. PT/OT recommendations are appreciated. 4. Continue Coumadin. Thank you for the opportunity to participate in the care of your patient. MD GISSELL Ray /10:44 PM /10:57 PM BRANDON
[2017-05-13] VITALS: BP 97/54; PULSE 65; RESP 18; TEMP 98.3; O2SAT 98
[2017-05-13 04:00] VITALS: BP 107/61; PULSE 78; RESP 18; TEMP 97.4; O2SAT 98
[2017-05-13] MEDS: CHLORHEXIDINE GLUCONATE 2 % 1 PACK (2 CLOTHS) TOP SCH ×2 (04:00)
[2017-05-13 08:00] VITALS: BP 129/56; PULSE 82; RESP 20; TEMP 98.2; O2SAT 97
[2017-05-13] MEDS: levETIRAcetam 500 MG TAB PO SCH ×4 (08:01→21:02)
[2017-05-13] MEDS: FOLIC ACID 1 MG TAB PO SCH ×2 (08:01)
[2017-05-13] MEDS: SODIUM CHLORIDE 0.9% FLUSH 10 ML FLUSH IV FLUSH SCH ×4 (08:02→21:05)
[2017-05-13] MEDS: oxyCODONE/ACETAMINOPHEN 5 MG/325 MG TAB PO PRN ×6 (08:02→21:03)
[2017-05-13] MEDS: DOCUSATE SODIUM 50 MG/SENNA 8.6 MG TAB PO SCH ×4 (08:03→21:04)
[2017-05-13 08:52] LABS: PROTHROMBIN TIME - PATIENT 34.8 SEC (9.8-11.6)
[2017-05-13] MEDS ORDERED: WARFARIN SOD 2 MG TAB PO ONE ×2 (10:45)
[2017-05-13 12:02] VITALS: BP 95/56; PULSE 80; RESP 20; TEMP 98.6; O2SAT 99
--- NOTE | 2017-05-13 13:50 | HHI.PR ---
Subjective Subjective Notes resting comfortably Objective Vitals/I&O Vital Signs Date Time Temp Pulse Resp B/P (MAP) Pulse Ox O2 Delivery O2 Flow Rate FiO2 05/13/17 12:02 98.6 80 20 95/56 (69) 99 05/12/17 07:00 Room Air Labs Laboratory Tests Test 05/13/17 08:20 Prothrombin Time 34.8 Prothromb Time International Ratio 3.0 Cardiovascular: Regular Lungs: Clear Abdomen: Non-distended A/P Assessment and Plan subSpecialty input appreciated PT note noted inr 3 today Will resume Coumadin 2 mg discharge planning-home health, coumadin clinic Louise Nickerson MD May 13, 2017 13:50
[2017-05-13 16:56] VITALS: BP 115/57; PULSE 96; RESP 20; TEMP 99; O2SAT 99
[2017-05-13 20:00] VITALS: BP 108/53; PULSE 80; RESP 18; TEMP 97.4; O2SAT 100
[2017-05-13] MEDS: ATORVASTATIN 10 MG TAB PO SCH ×2 (21:02)
[2017-05-14] VITALS: BP 111/73; PULSE 61; RESP 18; TEMP 97.2; O2SAT 97
[2017-05-14] MEDS: CHLORHEXIDINE GLUCONATE 2 % 1 PACK (2 CLOTHS) TOP SCH ×2 (03:54)
[2017-05-14 04:00] VITALS: BP 102/53; PULSE 85; RESP 18; TEMP 98.3; O2SAT 95
[2017-05-14] MEDS ORDERED: LACTULOSE SYRUP 20 GM/30 ML CUP PO SCH ×2 (07:00)
[2017-05-14] MEDS ORDERED: MAGNESIUM HYDROXIDE SUSP 30 ML CUP PO SCH ×2 (07:00)
[2017-05-14 07:55] VITALS: BP 112/59; PULSE 72; RESP 20; TEMP 98.4; O2SAT 97
[2017-05-14] MEDS: levETIRAcetam 500 MG TAB PO SCH ×2 (08:41)
[2017-05-14] MEDS: FOLIC ACID 1 MG TAB PO SCH ×2 (08:42)
[2017-05-14] MEDS: oxyCODONE/ACETAMINOPHEN 5 MG/325 MG TAB PO PRN ×4 (08:42→12:36)
[2017-05-14] MEDS: DOCUSATE SODIUM 50 MG/SENNA 8.6 MG TAB PO SCH ×2 (08:43)
[2017-05-14] MEDS: SODIUM CHLORIDE 0.9% FLUSH 10 ML FLUSH IV FLUSH SCH ×2 (08:44)
[2017-05-14 10:30] LABS: INTERNATIONAL NORMALIZED RATIO 2.9 RATIO; PROTHROMBIN TIME - PATIENT 34.1 SEC (9.8-11.6)
[2017-05-14] MEDS ORDERED: OXYC1TAB63 PO ×2 (13:10)
[2017-05-14] MEDS ORDERED: COUM1TAB PO ×2 (13:10)
[2017-05-14] MEDS ORDERED: LIPI10TA PO ×2 (13:10)
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
== END 2017-05-14 18:10 | disposition home health service (06) | DRG 64 ==
LOC: N03B 05-11 15:36 → OBSVTOIN 05-11 16:17 → N05A 05-12 12:09
PROVIDERS: ADMIT Surgery; ATTEND Surgery
DX: I63.9 Cerebral infarction, unspecified (principal); I77.71 Dissection of carotid artery; S32.009A Unspecified fracture of unspecified lumbar vertebra, initial encounter for closed fracture; S32.10XA Unspecified fracture of sacrum, initial encounter for closed fracture; S42.001A Fracture of unspecified part of right clavicle, initial encounter for closed fracture; L03.113 Cellulitis of right upper limb; F17.200 Nicotine dependence, unspecified, uncomplicated; F43.25 Adjustment disorder with mixed disturbance of emotions and conduct; V89.2XXA Person injured in unspecified motor-vehicle accident, traffic, initial encounter; Y92.410 Unspecified street and highway as the place of occurrence of the external cause
CPT/HCPCS: 72170; 73000; 80048; 85025; 85610; J2405; J7030